=== PATIENT | male | born 1945 | race Caucasian/White ===

== ENCOUNTER 2016-07-02 19:45 | Outpatient (CLI) | payer MEDICARE, OTHER ==
[~2016-07-02 19:45] MED LIST: ASP81TEC PO; ENAL5TAB PO; FOLI0.8T PO; KETO-22 PO; MTX2.5T PO; SIMV20TA3 PO
--- OUTSIDE RECORDS SUMMARY | 2016-07-02 19:59 | XMS REPORT | Continuity of Care Document ---
Author Author [facility] Organization [facility] Address Unknown Phone Unavailable Care Team Providers Care Human Resources Temp Name Role Phone SITA HERNANDEZ MD PCP Insurance Providers Payer Name Policy Number Subscriber Name Relationship [employer] [id number] Fred Hernandez 17 Self / Same As Patient [employer] [id number] Fred Hernandez 17 Self / Same As Patient Advance Directives Directive Response Recorded Date/Time Advance Directives No 12/06/11 4:57pm Problems No problem information available. Medications Current Home Medications Medication Dose Units Route Directions Days/Qty Instructions Start Date Methotrexate 2.5 Mg 4 Each Oral Weekly 12/06/11 Simvastatin 20 Mg 20 Mg Oral 12/06/11 Folic Acid 0.8 Mg 1 Each Oral Daily 12/06/11 Enalapril Maleate 5 Mg 5 Mg Oral 12/06/11 Aspirin 81 Mg 81 Mg Oral Daily 12/06/11 Ketorolac Tromethamine 10 Mg 10 Mg Oral Every 6 Hours as needed 15 FOR PAIN 12/06/11 Social History No social history. Hospital Discharge Instructions No hospital discharge instructions. Plan of Care Discharge Date 12/27/15 6:05am Prescriptions See Medication Section Functional Status No functional status results. Allergies, Adverse Reactions, Alerts Allergen Type Severity Reaction Status Last Updated amoxicillin trihydrate Allergy Intermediate N/V/D Active 12/06/11 potassium clavulanate Allergy Intermediate N/V/D Active 12/06/11 Immunizations No immunization records. Vital Signs No known vital signs results. Results No known relevant diagnostic tests, laboratory data and/or discharge summary. Procedures No known history of procedures. Encounters Encounter Location Arrival/Admit Date Discharge/Depart Date Attending Provider Departed Clinic [facility] 12/26/15 8:00pm 12/27/15 6: 05am KACIE SANTANA DO
== END 2016-07-03 15:10 | disposition home or self-care (01) ==
LOC: SLEEP 19:45
PROVIDERS: ATTEND Internal Medicine Critical Care Medicine
DX: G47.33 Obstructive sleep apnea (adult) (pediatric) (principal)
CPT/HCPCS: 95811

== ENCOUNTER → 2016-07-03 | Outpatient (CLI) | payer MEDICARE, OTHER ==
--- OUTSIDE RECORDS SUMMARY | 2016-07-03 13:25 | XMS REPORT | Continuity of Care Document ---
Author Author [facility] Organization [facility] Address Unknown Phone Unavailable Care Team Providers Care [employer] Name Role Phone SITA HERNANDEZ MD PCP Insurance Providers Payer Name Policy Number Subscriber Name Relationship [employer] [id number] Fred Hernandez 17 Self / Same As Patient [employer] [id number] Fred Hernandez 17 Self / Same As [...] Discharge/Depart Date Attending Provider Departed Clinic [facility] 12/26/15 8:00pm 12/27/15 6: 05am KACIE SANTANA DO
== END ==
LOC: SLEEP 00:01
PROVIDERS: ATTEND Internal Medicine Critical Care Medicine
DX: G47.33 Obstructive sleep apnea (adult) (pediatric) (principal); G47.419 Narcolepsy without cataplexy
CPT/HCPCS: 95805

== ENCOUNTER 2017-11-08 23:59 | Emergency (ER) | payer MEDICARE, OTHER ==
[~2017-11-08] VITALS: Ht 170.2 cm; Wt 71.7 kg
[2017-11-09] MEDS ORDERED: LISI10TA2 (00:11)
[2017-11-09] MEDS ORDERED: PANT40TA3 (00:11)
[2017-11-09] MEDS ORDERED: GLIP5TAB26 (00:11)
[2017-11-09] MEDS ORDERED: ATOR80TA76 (00:11)
[2017-11-09] MEDS ORDERED: METH2.5T (00:11)
[2017-11-09] MEDS ORDERED: CARV25TA (00:11)
[2017-11-09] MEDS ORDERED: ASPI-983 (00:11)
[2017-11-09] MEDS ORDERED: ASPIRIN 81 MG CHEW (CHILDREN'S ASA) PO ONE (00:15)
[2017-11-09] MEDS ORDERED: NITROGLYCERIN 0.4 MG SL TABS BTL 25'S SL PRN (00:15)
[2017-11-09 00:30] LABS: BASOPHILS % (AUTO) 0 % (0-10); EOSINOPHILS # (AUTO) 0.2 10^3/uL (0.0-0.3); EOSINOPHILS % (AUTO) 2 % (0-10); HEMATOCRIT 43 % (40-54); HEMOGLOBIN 15.3 G/DL (13.3-17.7); LYMPHOCYTES # (AUTO) 2.6 X 10^3 (1.0-4.0); LYMPHOCYTES % (AUTO) 30 % (12-44); MEAN CORPUSCULAR HEMOGLOBIN 34 PG (25-34); MEAN CORPUSCULAR HGB CONC 36 G/DL (32-36); MEAN CORPUSCULAR VOLUME 94 FL (80-99); MEAN PLATELET VOLUME 10.3 FL (7.4-10.4); MONOCYTES % (AUTO) 11 % (0-12); NEUTROPHILS % (AUTO) 57 % (42-75); PLATELET COUNT 222 10^3/uL (130-400); RED BLOOD COUNT 4.55 10^6/uL (4.35-5.85); RED CELL DISTRIBUTION WIDTH 13.5 % (10.0-14.5); WHITE BLOOD COUNT 8.7 10^3/uL (4.3-11.0)
[2017-11-09 00:47] LABS: PROTHROMBIN TIME PATIENT 12.9 SEC (12.2-14.7)
[2017-11-09 00:55] LABS: ALANINE AMINOTRANSFERASE 26 U/L (0-55); ALBUMIN 4.2 GM/DL (3.2-4.5); ALKALINE PHOSPHATASE 120 U/L (40-136); AMYLASE 108 U/L (25-125); BILIRUBIN,TOTAL 0.6 MG/DL (0.1-1.0); BUN/CREATININE RATIO 19; CALCIUM 9.4 MG/DL (8.5-10.1); CARBON DIOXIDE 18 MMOL/L (21-32); CHLORIDE 111 MMOL/L (98-107); CREATINE KINASE 213 U/L (30-200); GFR ESTIMATED > 60; GLUCOSE 118 MG/DL (70-105); LIPASE 26 U/L (8-78); MAGNESIUM 2.3 MG/DL (1.8-2.4); POTASSIUM 3.9 MMOL/L (3.6-5.0); SODIUM 141 MMOL/L (135-145); TOTAL PROTEIN 7.4 GM/DL (6.4-8.2)
[2017-11-09 03:24] VITALS: BP 131/77
--- NOTE | 2017-11-09 06:30 | Diagnostic Imaging Report ---
INDICATION: Chest pain COMPARISON: 12/06/2011 FINDINGS: Single view of the chest demonstrates clear lungs bilaterally. The heart is normal. There is no pneumothorax. The osseous structures normal. IMPRESSION: Negative chest Dictated by: Dictated on workstation # [id number]
== END 2017-11-09 03:27 | disposition short-term general hospital (02) ==
LOC: EDUNIT# 23:59 → ER 11-09 00:02
DX: R07.9 Chest pain, unspecified (principal)
CPT/HCPCS: 36415; 71045; 80053; 82150; 82550; 82553; 83690; 83735; 83874; 83880; 84484; 85025; 85610; 85730; 93005; 93041

== ENCOUNTER 2018-02-25 20:07 | Outpatient (CLI) | payer MEDICARE, OTHER ==
[~2018-02-25 20:07] MED LIST changes: +ASPI-983; +ATOR80TA76; +CARV25TA; +GLIP5TAB26; +LISI10TA2; +MTX2.5T; +PANT40TA3
== END 2018-02-26 05:50 | disposition home or self-care (01) ==
LOC: SLEEP 20:07
PROVIDERS: ATTEND Nurse Practitioner Family
DX: G47.33 Obstructive sleep apnea (adult) (pediatric) (principal); F39 Unspecified mood [affective] disorder; Z78.9 Other specified health status
CPT/HCPCS: 95811